=== PATIENT | female | born 1990 | race Caucasian/White ===

== ENCOUNTER 2019-03-28 19:37 | Emergency (ER) | payer BC, OTHER ==
--- NOTE | 2019-03-28 19:43 | UC ---
Lower Extremity/Ankle HPI - HPI Summary HPI Summary: 29 yo female presents with right leg weakness. She tells me that she has a history of low back pain and scoliosis. Over the last 2 weeks she has been noticing some right leg and foot weakness and numbness. She has had multiple MRIs on her back and has had issues with weakness in her right leg in the past that has usually resolved with time or physical therapy. She did have a fall about a month ago and landed on her left buttocks, had some mild pain then but no numbness, tingling, or weakness - pain resolved with rest. She has been taking ibuprofen 400mg daily for her discomfort which does help significantly with any pain, but does not change her weakness. She notices that stepping up onto a curb or stair with her right foot is more difficult than her left. She denies saddle anesthesia, dysuria, loss of bowel/bladder control, abdominal pain , n/v, or fever. - History of Current Complaint Stated Complaint: FOOT PAIN Time Seen by Provider: 03/28/19 19:42 Hx Obtained From: Patient Onset/Duration: Gradual Onset Severity Initially: Moderate Severity Currently: Moderate Pain Intensity: 5 Pain Scale Used: 0-10 Numeric - Allergies/Home Medications Allergies/Adverse Reactions: Allergies Allergy/AdvReac Type Severity Reaction Status Date / Time No Known Allergies Allergy Verified 03/28/19 20:16 Home Medications: Home Medications Ibuprofen 800 mg PO Q8HR PRN 03/28/19 [History Confirmed 03/28/19] PMH/Surg Hx/FS Hx/Imm Hx - Additional Past Medical History Additional PMH: PCOS Low back pain - Surgical History Surgical History: None - Family History Known Family History: Positive: Non-Contributory - Social History Occupation: Employed Full-time Lives: With Family Alcohol Use: Occasionally Substance Use Type: Marijuana Smoking Status (MU): Never Smoked Tobacco Review of Systems All Other Systems Reviewed And Are Negative: Yes Constitutional: Positive: Negative Skin: Positive: Negative Respiratory: Positive: Negative Cardiovascular: Positive: Negative Neurovascular: Positive: Negative Musculoskeletal: Positive: Other: - Low back pain Neurological: Positive: Weakness - Right leg/foot Psychological: Positive: Negative Physical Exam - Summary Physical Exam Summary: GENERAL: NAD. WDWN. No pain distress. SKIN: No rashes, sores, lesions, or open wounds. NECK: Supple. FROM. Nontender. No lymphadenopathy. CHEST: CTAB. No r/r/w. No accessory muscle use. Breathing comfortably and in no distress. CV: RRR. Without m/r/g. Pulses intact. Cap refill <2seconds MSK: NTTP lumbar spine or paraspinal muscle. Pain with flexion and extension of spine. Negative SLR b/l. Strength 4/5 on right compared to 5/5 on left LEs including dorsiflexion and plantar flexion. FROM B/L LEs. No edema. NEURO: Alert. Sensations intact B/L LEs L3-S1, but decreased L4 and L5 on right LE. Reflexes intact and symmetric b/l PSYCH: Age appropriate behavior. Triage Information Reviewed: Yes Vital Signs Reviewed: Yes Lower Extremity Course/Dx - Course Course Of Treatment: UA and urine negative. XR lumbar spine: wet read negative for acute process. I had a long conversation with the pt that her symptoms are most concerning for a lumbar radiculopathy that is progressing given her many year history of low back issues. She is not exhibiting any signs of cauda equina and is ambulatory without assistance. I will start her with naproxen, prednisone, and physical therapy. Will also help her establish with a PCP. I suspect she will likely require an MRI of her lumbar spine in the future if she does not improve with PT and medication management. - Differential Dx/Diagnosis Provider Diagnosis: Lumbar radiculopathy Discharge - Sign-Out/Discharge Documenting (check all that apply): Patient Departure All imaging exams completed and their final reports reviewed: No - Discharge Plan Condition: Stable Disposition: HOME Prescriptions: Naproxen [Naproxen 500 mg tab] 500 mg PO BID PRN #30 tablet PRN Reason: Pain predniSONE TAB* [Deltasone 20 MG TAB*] 60 mg PO DAILY #18 tab Patient Education Materials: Lumbar Radiculopathy (ED) Referrals: No Primary Care Phys,NOPCP [Primary Care Provider] - [facility] [place] PHYS[facility]IAN REFERRAL [Outside] - 2 Weeks Additional Instructions: If you develop a fever, shortness of breath, chest pain, new or worsening symptoms - please call your PCP or go to the ED immediately. Your blood pressure was high at todays visit. Please see your primary provider within 4 weeks for recheck and re-evaluation. Your X-Ray today did not show any acute changes. 1) I recommend that you schedule an appointment with physical therapy for further treatment of your back pain and weakness 2) Please call the physician referral line at the number below to schedule an appointment with a primary doctor, as you will need a follow up appointment for a recheck of your symptoms to see how you are doing - in 2-3 weeks. 3) If you develop numbness in your groin, loss of urine or bowel control, or progressing weakness of your leg - please go to the ER immediately - Billing Disposition and Condition Condition: STABLE Disposition: Home
[2019-03-28 20:51] VITALS: BP 124/78
--- NOTE | 2019-03-29 11:43 | UC ---
- Progress Note Progress Note: RADIOLOGY REPORT REVIEWED. SHOWS: 1. SCOLIOSIS. 2. MODERATE DEGENERATIVE DISC DISEASE NO CHANGE IN MANAGEMENT. Course/Dx - Diagnoses Provider Diagnoses: Lumbar radiculopathy Discharge - Sign-Out/Discharge Documenting (check all that apply): Post-Discharge Follow Up All imaging exams completed and their final reports reviewed: Yes - Discharge Plan Condition: Stable Disposition: HOME Prescriptions: Naproxen [Naproxen 500 mg tab] 500 mg PO BID PRN #30 tablet PRN Reason: Pain predniSONE TAB* [Deltasone 20 MG TAB*] 60 mg PO DAILY #18 tab Patient Education Materials: Lumbar Radiculopathy (ED) Referrals: [facility] [place] [facility]IAN REFERRAL [Outside] - 2 Weeks No Primary Care Phys,NOPCP [Primary Care Provider] - Additional Instructions: If you develop a fever, shortness of breath, chest pain, new or worsening symptoms - please call your PCP or go to the ED immediately. Your blood pressure was high at todays visit. Please see your primary provider within 4 weeks for recheck and re-evaluation. Your X-Ray today did not show any acute changes. 1) I recommend that you schedule an appointment with physical therapy for further treatment of your back pain and weakness 2) Please call the physician referral line at the number below to schedule an appointment with a primary doctor, as you will need a follow up appointment for a recheck of your symptoms to see how you are doing - in 2-3 weeks. 3) If you develop numbness in your groin, loss of urine or bowel control, or progressing weakness of your leg - please go to the ER immediately - Billing Disposition and Condition Condition: STABLE Disposition: Home
== END 2019-03-28 20:50 | disposition home or self-care (01) ==
LOC: UCEAST 19:37
DX: M54.16 Radiculopathy, lumbar region (principal); M79.604 Pain in right leg
CPT/HCPCS: 72110; 81002; 81025; 99212; G0463

== ENCOUNTER 2019-06-18 15:17 | Emergency (ER) | payer OTHER ==
[2019-06-18 15:31] VITALS: BP 120/79
[2019-06-18 17:14] LABS: Influenza A Molecular NEGATIVE (Negative); Influenza B Molecular NEGATIVE (Negative)
--- NOTE | 2019-06-18 18:04 | UC ---
Respiratory Complaint HPI - HPI Summary HPI Summary: The patient is a 29-year-old female with a 1-2 day history of cough congestion and fever chills and wheezing. Any past history of asthma. She has never had pneumonia. She denies any chest pain or shortness of breath. She does have a mild headache Myalgias. She Denies Any Nausea Vomiting or Diarrhea. - History of Current Complaint Chief Complaint: UCGeneralIllness Stated Complaint: URI Time Seen by Provider: 06/18/19 16:43 Hx Obtained From: Patient Hx Last Menstrual Period: 03/28/19 Onset/Duration: Gradual Onset, Lasting Days Severity Initially: Mild Severity Currently: Moderate Pain Intensity: 6 Character: Cough: Productive Aggravating Factors: Nothing Alleviating Factors: Nothing Associated Signs And Symptoms: Positive: Wheezing - Allergies/Home Medications Allergies/Adverse Reactions: Allergies Allergy/AdvReac Type Severity Reaction Status Date / Time No Known Allergies Allergy Verified 03/28/19 20:16 PMH/Surg Hx/FS Hx/Imm Hx Previously Healthy: Yes - Surgical History Surgical History: None - Family History Known Family History: Positive: Hypertension, Non-Contributory - Social History Alcohol Use: Weekly Substance Use Type: Marijuana Smoking Status (MU): Never Smoked Tobacco Review of Systems All Other Systems Reviewed And Are Negative: Yes Constitutional: Positive: Fever, Chills, Fatigue Skin: Positive: Negative Eyes: Positive: Negative ENT: Positive: Nasal Discharge Respiratory: Positive: Cough Cardiovascular: Positive: Negative Gastrointestinal: Positive: Negative Genitourinary: Positive: Negative Motor: Positive: Negative Neurovascular: Positive: Negative Musculoskeletal: Positive: Negative Neurological: Positive: Negative Psychological: Positive: Negative Physical Exam Triage Information Reviewed: Yes Appearance: Well-Appearing, No Pain Distress, Well-Nourished Vital Signs: Initial Vital Signs Temp 97.9 F 06/18/19 15:26 Pulse 77 06/18/19 15:26 Resp 18 06/18/19 15:26 BP 120/79 06/18/19 15:26 Pulse Ox 97 06/18/19 15:26 Vital Signs Reviewed: Yes Eyes: Positive: Conjunctiva Clear ENT: Positive: Normal ENT inspection, Uvula midline. Negative: Nasal congestion , Nasal drainage, Tonsillar swelling, Tonsillar exudate Neck: Positive: Supple, Nontender, No Lymphadenopathy Respiratory: Positive: No respiratory distress, No accessory muscle use, Wheezing Cardiovascular: Positive: RRR, No Murmur Musculoskeletal: Positive: ROM Intact, No Edema Neurological: Positive: Alert Psychological Exam: Normal Skin Exam: Normal Diagnostics - Radiology No standard instances Radiology Interpretation Completed By: Radiologist Summary of Radiographic Findings: NAD Respiratory Course/Dx - Differential Dx/Diagnosis Provider Diagnosis: Viral bronchitis Discharge ED - Sign-Out/Discharge Documenting (check all that apply): Patient Departure All imaging exams completed and their final reports reviewed: No - Discharge Plan Condition: Stable Disposition: HOME Prescriptions: predniSONE TAB* [Deltasone 20 MG TAB*] 40 mg PO DAILY #8 tab Patient Education Materials: Acute Bronchitis (ED), How to Use a Metered-Dose Inhaler and a Spacer (ED) Referrals: [facility] [place] PHYS[facility]IAN REFERRAL [Outside] - If Needed Additional Instructions: flu test negative recheck for new or worsening symptoms or if not better in 4-5 days - Billing Disposition and Condition Condition: STABLE Disposition: Home
[2019-06-18] MEDS ORDERED: predniSONE TAB* 20 MG PO ONE (18:07)
[2019-06-18] MEDS ORDERED: Albuterol HFA INHALER* 8 gm MDI INH ONE (18:07)
--- NOTE | 2019-06-19 10:24 | UC ---
- Progress Note Progress Note: Final radiologist reading of chest x-ray from June 18, 2019 comes back as no acute disease process. The provider interpretation same date is the same therefore there is no discrepancy. Course/Dx - Diagnoses Provider Diagnoses: Viral bronchitis Discharge ED - Sign-Out/Discharge Documenting (check all that apply): Patient Departure All imaging exams completed and their final reports reviewed: Yes - Discharge Plan Condition: Stable Disposition: HOME Prescriptions: predniSONE TAB* [Deltasone 20 MG TAB*] 40 mg PO DAILY #8 tab Patient Education Materials: Acute Bronchitis (ED), How to Use a Metered-Dose Inhaler and a Spacer (ED) Referrals: [facility] [place] PHYSICIAN REFERRAL [Outside] - If Needed Additional Instructions: flu test negative recheck for new or worsening symptoms or if not better in 4-5 days - Billing Disposition and Condition Condition: STABLE Disposition: Home
== END 2019-06-18 18:45 | disposition home or self-care (01) ==
LOC: UCEAST 15:17
DX: J20.8 Acute bronchitis due to other specified organisms (principal); R06.2 Wheezing; R09.89 Other specified symptoms and signs involving the circulatory and respiratory systems
CPT/HCPCS: 71046; 99212; A9270-GY; G0463; J7512

== ENCOUNTER 2019-10-01 08:06 | Emergency (ER) | payer OTHER ==
[2019-10-01 08:28] VITALS: BP 95/75
--- NOTE | 2019-10-01 08:49 | UC ---
UC General HPI - HPI Summary HPI Summary: 29 yo female c/o fever last 2 days. Started with just a fever, progressed to achy, feeling sick and cough della at night Fever is worse at night. GI a little off, thinks she might have diarrhea, but has not had diarrhea. [employer] like she was wheezing last night, but does not have asthma (declines albuterol script). No rash. - History of Current Complaint Chief Complaint: UCGeneralIllness Stated Complaint: FEVER X 2 DAYS,COUGH,HEADACHE Time Seen by Provider: 10/01/19 08:42 Hx Obtained From: Patient Hx Last Menstrual Period: 09/24/19 Pain Intensity: 1 - Allergy/Home Medications Allergies/Adverse Reactions: Allergies Allergy/AdvReac Type Severity Reaction Status Date / Time No Known Allergies Allergy Verified 10/01/19 08:21 Home Medications: Home Medications Ibuprofen TAB* [Motrin TAB* 400 MG] 400 mg PO Q6H PRN 10/01/19 [History Confirmed 10/01/19] PMH/Surg Hx/FS Hx/Imm Hx Previously Healthy: Yes - Surgical History Surgical History: None - Family History Known Family History: Positive: Hypertension, Non-Contributory - Social History Alcohol Use: Weekly Substance Use Type: Marijuana Substance Use Comment - Amount & Last Used: daily Smoking Status (MU): Never Smoked Tobacco Review of Systems All Other Systems Reviewed And Are Negative: Yes Constitutional: Positive: Fatigue Skin: Positive: Negative - see hpi Eyes: Positive: Negative ENT: Positive: Other - denies sore throat Respiratory: Positive: Cough Cardiovascular: Positive: Negative Gastrointestinal: Positive: Negative Genitourinary: Positive: Negative Motor: Positive: Negative Neurovascular: Positive: Negative Musculoskeletal: Positive: Negative - see hpi Neurological: Positive: Negative Psychological: Positive: Negative Is Patient Immunocompromised?: No Physical Exam Triage Information Reviewed: Yes Appearance: Well-Nourished - sitting up, looks uncomfortable and tired, but nad Vital Signs: Initial Vital Signs Temp 97.5 F 10/01/19 08:22 Pulse 85 10/01/19 08:22 Resp 16 10/01/19 08:22 BP 95/75 10/01/19 08:22 Pulse Ox 97 10/01/19 08:22 Vital Signs Reviewed: Yes Eye Exam: Normal ENT: Positive: Pharyngeal erythema - post pharyng redness, no sores / exudates. uvula midline., TMs normal Neck exam: Normal Neck: Positive: Supple, Nontender, No Lymphadenopathy Respiratory Exam: Other - + cough Respiratory: Positive: Chest non-tender, Lungs clear, Normal breath sounds, No respiratory distress, No accessory muscle use Cardiovascular Exam: Normal Cardiovascular: Positive: RRR, No Murmur, Brisk Capillary Refill Abdominal Exam: Normal - slight hyperinc bs, but nad Abdomen Description: Positive: Nontender Musculoskeletal Exam: Normal - no c/o cva discomfort Neurological Exam: Normal - nonfocal Psychological Exam: Normal - nad Skin Exam: Normal - no visible or reported rash nondiaphoretic Course/Dx - Course Course Of Treatment: Influenza nasal swab a/b - + A Reviewed coa /tx plan with pt. Questions as posed answered to the best of may ability. - Diagnoses Provider Diagnosis: Influenza A Discharge ED - Sign-Out/Discharge Documenting (check all that apply): Patient Departure All imaging exams completed and their final reports reviewed: No Studies - Discharge Plan Condition: Stable Disposition: HOME Patient Education Materials: Influenza (ED) Forms: *Work Release Referrals: No Primary Care Phys,NOPCP [Primary Care Provider] - - Billing Disposition and Condition Condition: STABLE Disposition: Home
[2019-10-01 09:08] LABS: Influenza B Molecular POSITIVE (Negative)
== END 2019-10-01 09:33 | disposition home or self-care (01) ==
LOC: UCEAST 08:06
DX: J10.1 Influenza due to other identified influenza virus with other respiratory manifestations (principal)
CPT/HCPCS: 99212; G0463